=== PATIENT | female | born 2000 | race Two or more races ===

== ENCOUNTER 2022-02-04 15:25 | Observation (INO) | payer MEDICAID ==
[~2022-02-04] VITALS: Ht 152.4 cm; Wt 62.6 kg
[2022-02-04] MEDS: TERBUTALINE SULFATE 1 MG/ML 1ML VIAL SC SCH ×2 (17:33→20:01)
[2022-02-04] MEDS ORDERED: LACTATED RINGER'S 1,000 ML IV ONE ×2 (18:30→21:00)
[2022-02-04] MEDS ORDERED: PREN27TA7 OR (20:03)
== END 2022-02-04 22:16 | disposition home or self-care (01) ==
LOC: LDRP 15:25 → UNDOADMOB 15:25 → LDRP 15:46 → UNDODISOB 22:16
PROVIDERS: ADMIT Obstetrics & Gynecology; ATTEND Obstetrics & Gynecology
DX: O24.419 Gestational diabetes mellitus in pregnancy, unspecified control (principal); O26.893 Other specified pregnancy related conditions, third trimester; K86.1 Other chronic pancreatitis; Z3A.33 33 weeks gestation of pregnancy
CPT/HCPCS: 59025; 76818; 81002; 82948; 82962; 94760; 96360; 96361; 96372; G0378; J3105

== ENCOUNTER 2022-02-11 11:43 | Observation (INO) | payer MEDICAID ==
[~2022-02-11] VITALS: Ht 154.9 cm; Wt 76.7 kg
[~2022-02-11 11:43] MED LIST: PREN27TA7 OR
[2022-02-11] MEDS ORDERED: NIF10C PO (13:54)
[2022-02-11] MEDS ORDERED: BETAMETHASONE ACET (30mg/5ml) 5ml Vial 6mg/ml IM SCH (15:00)
[2022-02-11] MEDS: TERBUTALINE SULFATE 1 MG/ML 1ML VIAL SC SCH ×2 (15:21→16:20)
[2022-02-11] MEDS ORDERED: NIFEdipine 10 MG CAP PO ONE (16:00)
== END 2022-02-11 16:52 | disposition home or self-care (01) ==
LOC: UNDOADMOB 13:12 → LDRP 13:12
PROVIDERS: ADMIT Obstetrics & Gynecology; ATTEND Obstetrics & Gynecology
DX: O60.03 Preterm labor without delivery, third trimester (principal); O24.419 Gestational diabetes mellitus in pregnancy, unspecified control; Z3A.34 34 weeks gestation of pregnancy
CPT/HCPCS: 59025; 76818; 81002; 82948; 82962; 94760; 96372; G0378; J3105

== ENCOUNTER 2022-02-18 07:48 | Observation (INO) | payer MEDICAID ==
[~2022-02-18 07:48] MED LIST changes: +NIF10C PO
== END 2022-02-18 13:27 | disposition home or self-care (01) ==
LOC: UNDOADMOB 11:48 → LDRP 11:48
PROVIDERS: ADMIT Obstetrics & Gynecology; ATTEND Obstetrics & Gynecology
DX: O24.419 Gestational diabetes mellitus in pregnancy, unspecified control (principal); O60.03 Preterm labor without delivery, third trimester; Z3A.35 35 weeks gestation of pregnancy
CPT/HCPCS: 59025; 76818; 81002; 82948; 82962; 94760; G0378

== ENCOUNTER 2022-02-25 07:47 | Observation (INO) | payer MEDICAID ==
[2022-03-06] MEDS ORDERED: METF-370 PO (17:32)
== END 2022-02-25 14:17 | disposition home or self-care (01) ==
LOC: LDRP 12:49
PROVIDERS: ADMIT Obstetrics & Gynecology; ATTEND Obstetrics & Gynecology
DX: O24.419 Gestational diabetes mellitus in pregnancy, unspecified control (principal); O60.03 Preterm labor without delivery, third trimester; Z3A.36 36 weeks gestation of pregnancy
CPT/HCPCS: 59025; 76818; 81002; 82962; 94760; G0378

== ENCOUNTER 2022-03-03 11:53 | Observation (INO) | payer MEDICAID | END 2022-03-03 16:12 | disposition home or self-care (01) | LOC: LDRP 11:53 → UNDOADMOB 11:53 → LDRP 11:55 → UNDODISOB 16:12 | PROVIDERS: ADMIT Obstetrics & Gynecology; ATTEND Obstetrics & Gynecology | DX: O24.419 Gestational diabetes mellitus in pregnancy, unspecified control (principal); Z3A.37 37 weeks gestation of pregnancy | CPT/HCPCS: 59025; 76815; 76818; 81002; 82962; 94760; G0378; Q0114 ==

== ENCOUNTER 2022-03-10 11:14 | Observation (INO) | payer MEDICAID ==
[~2022-03-10 11:14] MED LIST changes: +METF-370 PO; -NIF10C PO
== END 2022-03-10 18:25 | disposition home or self-care (01) ==
LOC: LDRP 16:12 → UNDOADMOB 16:33 → UNDODISOB 18:25
PROVIDERS: ADMIT Obstetrics & Gynecology; ATTEND Obstetrics & Gynecology
DX: O24.419 Gestational diabetes mellitus in pregnancy, unspecified control (principal); O62.9 Abnormality of forces of labor, unspecified; O99.891 Other specified diseases and conditions complicating pregnancy; M54.9 Dorsalgia, unspecified; Z3A.38 38 weeks gestation of pregnancy
CPT/HCPCS: 59025; 81002; 82962; 94760; G0378

== ENCOUNTER 2022-03-13 10:09 | Inpatient (IN) | payer MEDICAID ==
[~2022-03-13] VITALS: Ht 154.9 cm; Wt 81.6 kg
[2022-03-13] MEDS ORDERED: DERMOPLAST 60ML BOTTLE TOP PRN (11:30)
[2022-03-13] MEDS ORDERED: PHISODERM TOP SOLN 240ML BTL TOP PRN (11:30)
[2022-03-13] MEDS ORDERED: LIDOCAINE 2%HCL (LOCAL ANESTH.) INJ 10ml MDV IJ PRN (11:30)
[2022-03-13] MEDS ORDERED: PROMETHAZINE HCL 25 MG/ML 1ML IV PRN (11:30)
[2022-03-13] MEDS ORDERED: BUTORPHANOL TARTRATE 2 MG/1 ML VIAL IV PRN (11:30)
[2022-03-13] MEDS ORDERED: WITCH HAZEL-GLYCERIN PAD TOP PRN (11:30)
[2022-03-13 11:41] LABS: Basophils # (auto) 0.1 10 ^3/uL (0-0.2); Basophils % (auto) 0.5 % (0.0-2.0); Eosinophils # (auto) 0.1 10 ^3/uL (0-0.8); Eosinophils % (auto) 0.7 % (0.0-7.0); Hematocrit 33.4 % (36.0-46.0); Hemoglobin 10.9 g/dL (12.2-16.2); Lymphocytes # (auto) 1.2 10 ^3/uL (0.4-5.4); Lymphocytes % (auto) 11.3 % (10.0-50.0); Mean Corpuscular Hemoglobin 26.9 pg (28.0-32.0); Mean Corpuscular Hgb Conc. 32.7 g/dL (32.0-36.0); Mean Corpuscular Volume 82.3 fL (80.0-100.0); Monocytes # (auto) 0.8 10 ^3/uL (0-1.3); Monocytes % (auto) 8.1 % (0.0-12.0); Neutrophils # (auto) 8.2 10 ^3/uL (1.6-8.6); Neutrophils % (auto) 79.4 % (37.0-80.0); Red Blood Cells 4.06 10^6/uL (4.0-5.20); Red Cell Distribution Width 16.1 % (11.8-14.3); White Blood Cell 10.4 10^3/uL (4.4-10.8)
[2022-03-13 11:50] LABS: Urine Bacteria FEW /hpf (None Seen); Urine Blood Negative /uL (Negative); Urine Hyaline Cast FEW /lpf (0 - 2); Urine Mucus FEW (None Seen); Urine Specific Gravity 1.023 (1.001-1.035); Urine WBC 7 /hpf (0 - 5)
[2022-03-13 12:00] LABS: Albumin 2.4 g/dL (3.4-5.0); Calcium 8.5 mg/dL (8.5-10.1); Potassium 3.8 mmol/L (3.5-5.1)
[2022-03-13 12:01] LABS: Amphetamine Screen, Urine NEGATIVE (NEGATIVE); Barbiturate Scree,Urine NEGATIVE (NEGATIVE); Benzodiazephine Screen, Urine NEGATIVE (NEGATIVE); Cannabinoid Screen, Urine NEGATIVE (NEGATIVE); Cocaine Screen, Urine NEGATIVE (NEGATIVE); Opiate Scree,Urine NEGATIVE (NEGATIVE); Phencyclidine Screen, Urine NEGATIVE (NEGATIVE)
[2022-03-13 12:03] LABS: Bilirubin, Total 0.3 mg/dL (0.2-1.0); Total Protein 6.7 g/dL (6.4-8.2)
[2022-03-13] MEDS: miSOPROStol 50 MCG per PRE-CUT 1/2 TAB PO PRN ×2 (12:05→21:13)
[2022-03-13 12:11] LABS: INR 0.87 (0.9-1.15); Partial Thromboplastin Time 28.5 sec (24.6-33.4)
[2022-03-13] MEDS: LACTATED RINGER'S 1,000 ML IV SCH ×2 (17:20→20:51)
[2022-03-13] MEDS ORDERED: LACT. RINGERS/OXYTOCIN 20UNITS 500 ML IV ONE ×2 (18:00→18:30)
[2022-03-14] MEDS: miSOPROStol 50 MCG per PRE-CUT 1/2 TAB PO PRN (01:35)
[2022-03-14] MEDS: BUTORPHANOL TARTRATE 2 MG/1 ML VIAL IV PRN ×2 (03:50→08:37)
[2022-03-14] MEDS: LACTATED RINGER'S 1,000 ML IV SCH ×2 (04:33→15:51)
[2022-03-14 06:06] LABS: RPR Non Reactive (Non Reactive)
[2022-03-14] MEDS ORDERED: ROPIVACAINE HCL 200 ML EPI SCH (07:30)
[2022-03-14] MEDS ORDERED: NALOXONE HCL 0.4 MG/ML VIAL IV ONE (07:30)
[2022-03-14] MEDS ORDERED: LACTATED RINGER'S 1,000 ML IV ONE (07:30)
[2022-03-14] MEDS ORDERED: ePHEDrine SULFATE 50 MG/ML AMP IV ONE (07:30)
[2022-03-14] MEDS: LACT. RINGERS/OXYTOCIN 20UNITS 1,000 ML IV SCH (09:01)
[2022-03-14 09:15] LABS: Basophils # (auto) 0 10 ^3/uL (0-0.2); Basophils % (auto) 0.4 % (0.0-2.0); Eosinophils # (auto) 0 10 ^3/uL (0-0.8); Eosinophils % (auto) 0.3 % (0.0-7.0); Hematocrit 34.5 % (36.0-46.0); Hemoglobin 11.4 g/dL (12.2-16.2); Lymphocytes # (auto) 1.3 10 ^3/uL (0.4-5.4); Lymphocytes % (auto) 10.8 % (10.0-50.0); Mean Corpuscular Hemoglobin 26.9 pg (28.0-32.0); Mean Corpuscular Volume 81.7 fL (80.0-100.0); Monocytes # (auto) 0.9 10 ^3/uL (0-1.3); Monocytes % (auto) 7.6 % (0.0-12.0); Neutrophils # (auto) 9.4 10 ^3/uL (1.6-8.6); Neutrophils % (auto) 80.9 % (37.0-80.0); Nucleated Red Blood Cells % 0.1 %; Red Blood Cells 4.22 10^6/uL (4.0-5.20); Red Cell Distribution Width 16.2 % (11.8-14.3); White Blood Cell 11.6 10^3/uL (4.4-10.8)
[2022-03-14] MEDS ORDERED: GENTAMICIN PER PHARMACY 0 ML IV SCH (21:30)
[2022-03-14] MEDS ORDERED: ACETAMINOPHEN 325 MG TAB PO PRN (21:30)
[2022-03-14] MEDS ORDERED: GENTAMICIN SULFATE 400 MG in D5W 5% 100 ML IV SCH (22:00)
[2022-03-15] MEDS ORDERED: AMPICILLIN SOD 2GM INJ 2 GM in SODIUM CHL 0.9% 100 ML IV SCH ×2
[2022-03-15] MEDS: PIPERACILLIN-TAZOB 3.375GM 100 ML IV SCH ×3 (00:01→12:16)
[2022-03-15] MEDS: LACT. RINGERS/OXYTOCIN 20UNITS 1,000 ML IV SCH (01:06)
[2022-03-15] MEDS ORDERED: LACTATED RINGER'S 1,000 ML IV ONE (17:30)
[2022-03-15] MEDS ORDERED: ceFAZolin 2 GM in D5W 5% 100 ML IV ONE (17:30)
[2022-03-15] MEDS ORDERED: LACTATED RINGER'S 1,000 ML IV SCH (17:30)
[2022-03-15] MEDS ORDERED: SODIUM BICARBONATE 8.4 % INJ 50ML VIAL IV ONE (17:45)
[2022-03-15] MEDS ORDERED: oxyTOCIN 10 UNIT/ML 10ML VIAL ONE (17:50)
[2022-03-15] MEDS ORDERED: MORPHINE SULF PF 5 MG/10 ML VIAL ONE (17:50)
[2022-03-15] MEDS ORDERED: LIDOCAINE 2% (LOCAL ANESTH.) PF 5ml SDV ONE ×2 (17:50→18:19)
[2022-03-15] MEDS ORDERED: ONDANSETRON HCL 4 MG/2 ML VIAL ONE (17:50)
[2022-03-15] MEDS ORDERED: LIDOCAINE 1% (LOCAL ANESTH.) PF 5ml SDV ONE (17:50)
[2022-03-15] MEDS ORDERED: fentaNYL CITRATE 100 MCG/2 ML VL ONE (17:50)
[2022-03-15] MEDS ORDERED: MIDAZOLAM HCL 2MG/2ML 2ml VIAL (1mg/ml) ONE ×2 (17:50→18:51)
[2022-03-15] MEDS ORDERED: LIDOCAINE HCL 2 %PF INJ 10ML AMP IJ ONE (17:50)
[2022-03-15] MEDS ORDERED: SODIUM CHLORIDE LOCK 10 ML ONE (17:50)
[2022-03-15] MEDS ORDERED: MORPHINE SULFATE 4 MG/ML SYR/VIAL IV PRN ×2 (18:00→19:30)
[2022-03-15] MEDS ORDERED: ONDANSETRON HCL 4 MG/2 ML VIAL IV PRN (18:00)
[2022-03-15] MEDS ORDERED: diphenhdrAMINE HCL 50 MG/1 ML VL IV PRN (19:30)
[2022-03-15] MEDS ORDERED: NALOXONE HCL 0.4 MG/ML VIAL IV PRN (19:30)
[2022-03-15] MEDS ORDERED: KETOROLAC TROMETH 30 MG/ML 1ML VIAL IV ONE (19:30)
[2022-03-15] MEDS ORDERED: HYDROmorphone HCL 2 MG/ML VL/or syr IV PRN ×2 (19:30)
[2022-03-15] MEDS ORDERED: METOCLOPRAMIDE HCL 5MG/ml INJ 2ml VIAL IV PRN (19:30)
[2022-03-15] MEDS: ceFAZolin 1GM/50ML 50 ML IV SCH (20:59)
[2022-03-15 21:00] VITALS: BP 108/68
[2022-03-15] MEDS ORDERED: HYDROcodone-ACET 5/325MG TAB PO PRN (21:15)
[2022-03-15 22:00] VITALS: BP 118/76
[2022-03-15 23:00] VITALS: BP 123/77
[2022-03-16] VITALS (22 sets, daily range): BP systolic 101–116; BP diastolic 59–82
[2022-03-16] MEDS ORDERED: ACETAMINOPHEN IV 1000 MG/100ML (10MG/ML) IV PRN ×4 (02:15→14:30)
[2022-03-16] MEDS: ceFAZolin 1GM/50ML 50 ML IV SCH (05:13)
[2022-03-16 07:16] LABS: Basophils # (auto) 0 10 ^3/uL (0-0.2); Basophils % (auto) 0.2 % (0.0-2.0); Eosinophils # (auto) 0 10 ^3/uL (0-0.8); Hematocrit 27.3 % (36.0-46.0); Lymphocytes # (auto) 1.6 10 ^3/uL (0.4-5.4); Lymphocytes % (auto) 8.3 % (10.0-50.0); Mean Corpuscular Hemoglobin 27.2 pg (28.0-32.0); Mean Corpuscular Volume 82.4 fL (80.0-100.0); Monocytes # (auto) 1.5 10 ^3/uL (0-1.3); Monocytes % (auto) 7.7 % (0.0-12.0); Neutrophils # (auto) 16.4 10 ^3/uL (1.6-8.6); Neutrophils % (auto) 83.8 % (37.0-80.0); Red Blood Cells 3.32 10^6/uL (4.0-5.20); Red Cell Distribution Width 16.3 % (11.8-14.3); White Blood Cell 19.6 10^3/uL (4.4-10.8)
[2022-03-16] MEDS ORDERED: KETOROLAC TROMETH 30 MG/ML 1ML VIAL IV PRN (08:30)
[2022-03-16] MEDS ORDERED: ceFAZolin 1GM/50ML 50 ML IV SCH (13:00)
[2022-03-16] MEDS ORDERED: HYDROcodone-ACET 5/325MG TAB PO PRN (18:00)
[2022-03-16] MEDS ORDERED: SIMETHICONE 80 MG CHEWABLE TABLET PO PRN (18:00)
[2022-03-16] MEDS ORDERED: DOCUSATE SOD 100 MG CAP PO SCH (22:00)
[2022-03-16] MEDS: IBUPROFEN 600 MG TAB PO PRN (22:09)
[2022-03-17] MEDS: HYDROcodone-ACET 5/325MG TAB PO PRN ×4 (00:23→18:50)
[2022-03-17 03:00] VITALS: BP 105/69
[2022-03-17 07:30] VITALS: BP 109/61
[2022-03-17] MEDS: IBUPROFEN 600 MG TAB PO PRN ×2 (08:26→15:26)
[2022-03-17] MEDS: FERROUS SULFATE 325mg EC TAB PO SCH ×2 (08:26→18:08)
[2022-03-17 11:00] VITALS: BP 114/67
[2022-03-17] MEDS ORDERED: DOCU-94 PO (13:34)
[2022-03-17] MEDS ORDERED: IBUP800T27 PO (13:34)
[2022-03-17] MEDS ORDERED: HYDR-4902 PO (13:34)
[2022-03-17 15:15] VITALS: BP 108/91
[2022-03-17 18:30] VITALS: BP 125/73
[2022-03-17] MEDS ORDERED: BISACODYL 5 MG EC TAB PO ONE (19:15)
[2022-03-17] MEDS ORDERED: TETANUS-DIPTH-ACEL PERTUSSIS 0.5ML SYR Tdap IM ONE (19:45)
[2022-03-17 21:06] VITALS: BP 125/73
== END 2022-03-17 20:52 | disposition home or self-care (01) | DRG 540 ==
LOC: LDRP 10:09 → OBSVTOIN 10:10 → LDRP 03-15 21:39
PROVIDERS: ADMIT Obstetrics & Gynecology; ATTEND Obstetrics & Gynecology
PROC: 3E0DXGC Introduction of Other Therapeutic Substance into Mouth and Pharynx, External Approach (ICD-10-PCS; 2022-03-13)
PROC: 10D00Z1 Extraction of Products of Conception, Low, Open Approach (ICD-10-PCS; principal; 2022-03-15 18:22)
PROC: 3E0234Z Introduction of Serum, Toxoid and Vaccine into Muscle, Percutaneous Approach (ICD-10-PCS; 2022-03-17)
DX: O24.429 Gestational diabetes mellitus in childbirth, unspecified control (principal); O41.1230 Chorioamnionitis, third trimester, not applicable or unspecified; D62 Acute posthemorrhagic anemia; O61.0 Failed medical induction of labor; Z37.0 Single live birth; Z3A.39 39 weeks gestation of pregnancy; O99.02 Anemia complicating childbirth; Z20.822 Contact with and (suspected) exposure to COVID-19; O33.9 Maternal care for disproportion, unspecified; O62.2 Other uterine inertia; O76 Abnormality in fetal heart rate and rhythm complicating labor and delivery; Z23 Encounter for immunization
CPT/HCPCS: 36415; 59025; 62282; 80053; 80307; 81001; 81002; 82948; 82962; 85025; 85610; 85730; 86592; 86850; 86900; 86901; 87426; 90715; 94760; 94762; 96360; 96361; 96365; 96366; 96374; 96375; G0378; J0131; J0690; J1885; J2001; J2250; J2405; J2543; J2590; J7060

== ENCOUNTER 2022-03-28 11:47 | Emergency (ER) | payer MEDICAID ==
[~2022-03-28] VITALS: Ht 154.9 cm; Wt 72.1 kg
[~2022-03-28 11:47] MED LIST changes: +DOCU-94 PO; +HYDR-4902 PO; +IBUP800T27 PO
[2022-03-28 12:40] LABS: Urine Bacteria NONE SEEN /hpf (None Seen); Urine Blood 1+ /uL (Negative); Urine Mucus FEW (None Seen); Urine Specific Gravity 1.024 (1.001-1.035); Urine WBC 13 /hpf (0 - 5)
[2022-03-28 13:30] LABS: Eosinophils # (auto) 0.1 10 ^3/uL (0-0.8); Lymphocytes # (auto) 1.3 10 ^3/uL (0.4-5.4); Monocytes # (auto) 0.5 10 ^3/uL (0-1.3); Neutrophils # (auto) 7.5 10 ^3/uL (1.6-8.6)
[2022-03-28 13:31] LABS: Basophils # (auto) 0 10 ^3/uL (0-0.2); Basophils % (auto) 0.3 % (0.0-2.0); Eosinophils % (auto) 0.8 % (0.0-7.0); Hematocrit 31.6 % (36.0-46.0); Hemoglobin 10.3 g/dL (12.2-16.2); Lymphocytes % (auto) 13.9 % (10.0-50.0); Mean Corpuscular Hemoglobin 26.5 pg (28.0-32.0); Mean Corpuscular Hgb Conc. 32.7 g/dL (32.0-36.0); Mean Corpuscular Volume 80.9 fL (80.0-100.0); Monocytes % (auto) 5.3 % (0.0-12.0); Neutrophils % (auto) 79.7 % (37.0-80.0); Nucleated Red Blood Cells % 0.1 %; Red Cell Distribution Width 16.7 % (11.8-14.3); White Blood Cell 9.5 10^3/uL (4.4-10.8)
[2022-03-28] MEDS ORDERED: LACTATED RINGER'S 1,000 ML IV ONE (13:45)
[2022-03-28] MEDS ORDERED: ACETAMINOPHEN 325 MG TAB PO ONE (13:45)
[2022-03-28 13:56] LABS: Albumin 3.2 g/dL (3.4-5.0); Calcium 9.4 mg/dL (8.5-10.1); Potassium 4.4 mmol/L (3.5-5.1)
[2022-03-28 14:00] LABS: Bilirubin, Total 0.5 mg/dL (0.2-1.0); Total Protein 7.2 g/dL (6.4-8.2)
[2022-03-28] MEDS ORDERED: IOHEXOL 300 MG/ML 100ML BOTTLE IJ ONE (14:20)
[2022-03-28] MEDS ORDERED: CEFTRIAXONE SODIUM 2 GM in D5W 5% 50 ML IV ONE (16:00)
[2022-03-28] MEDS ORDERED: CEPH-510 PO (17:15)
[2022-03-28] MEDS ORDERED: KETOROLAC TROMETH 30 MG/ML 1ML VIAL IV ONE (17:15)
[2022-03-28] MEDS ORDERED: METR500T PO (17:15)
[2022-03-28 18:06] VITALS: BP 127/63
== END 2022-03-28 18:06 | disposition home or self-care (01) ==
LOC: ER 11:47
DX: N71.9 Inflammatory disease of uterus, unspecified (principal); R74.01 Elevation of levels of liver transaminase levels; E11.9 Type 2 diabetes mellitus without complications; Z79.899 Other long term (current) drug therapy; Z98.890 Other specified postprocedural states; Z90.49 Acquired absence of other specified parts of digestive tract
CPT/HCPCS: 36415; 74177; 76856; 80053; 81001; 81025; 83690; 85025; 96361; 96365; 96375; 99285; J0696; J1885; J7060; Q9967